=== PATIENT | male | born 1980 | race Caucasian/White ===

== ENCOUNTER 2019-02-15 10:26 | Emergency (ER) | payer BC, OTHER ==
[2019-02-15] MEDS ORDERED: Ondansetron PF 4 MG/2 ML Vial ONE ×2 (10:49→11:04)
[2019-02-15 11:22] LABS: Band 28 % (5-11); Hemoglobin 15.4 g/dL (14.0-18.0); Lymphocytes 5 % (21-51); MDiff Complete? YES; Mean Corpuscular HGB CONC 34.3 g/dL (32.0-36.0); Mean Corpuscular Hemoglobin 28.9 pg (27.0-31.0); Mean Corpuscular Volume 84.4 fL (78.0-98.0); Mean Platelet Volume 8.3 fL (7.4-10.4); Monocytes 7 % (0-10); Neutrophil 57 % (42-75); Platelet Count 246 thou/uL (130-400); Platelet Morphology Comment Appears Adequate; RBC Distribution Width 11.8 % (11.5-14.5); Reactive Lymphocytes 2 % (0-10); Red Blood Cell (RBC) Count 5.31 mill/uL (4.70-6.10)
--- NOTE | 2019-02-15 11:26 | CT ---
CT abdomen and pelvis noncontrast HISTORY: Flank pain. FINDINGS: Each renal collecting system, ureter, and urinary bladder are decompressed without stone ap parent. Lack of contrast limits evaluation for other abnormalities. Mild degenerative changes lumbar spine. S cattered diverticula of the colon, particularly on the left, where no inflammation is apparent. Circumferential wall thickening and subtle stranding in the fat adjacent to the right side of the tra nsverse colon, the right colon, and the distal ileum. No free air or free fluid. Scattered reactive appearing lymph nodes throughout the mesentery, more on the right than the left. IMPRESSION: No CT evidence of urinary tract obstruction or calcification. Long segment colitis on the right, also involving the terminal ileum. Clinical correlation regarding cause of long segment colitis is required. Consider infectious versus inflammatory bowel disease versus ischemia.
[2019-02-15 11:32] LABS: ALT (SGPT) 27 U/L (8-55); AST (SGOT) 19 U/L (5-34); Albumin 4.7 g/dL (3.5-5.0); Alkaline Phosphatase 70 U/L (40-150); Anion Gap 19 mmol/L (10-20); BUN (Urea Nitrogen) 11 mg/dL (8.9-20.6); Bilirubin, Total 1.1 mg/dL (0.2-1.2); Calc. Creatinine Clearance 0 mL/min (70-130); Calcium 9.9 mg/dL (7.8-10.44); Carbon Dioxide 21 mmol/L (22-29); Chloride 98 mmol/L (98-107); Estimated GFR-MDRD 83; Globulin 3.2 g/dL (2.4-3.5); Glucose 106 mg/dL (70-105); Potassium 3.6 mmol/L (3.5-5.1); Protein, Total 7.9 g/dL (6.0-8.3); Sodium 134 mmol/L (136-145)
[2019-02-15] MEDS ORDERED: metroNIDAZOLE 500 MG/100 ML BAG ONE (11:36)
[2019-02-15] MEDS ORDERED: Ciprofloxacin Lactate/D5W 400 mg/200 ml Premix ONE (11:36)
[2019-02-15] MEDS ORDERED: Morphine 4 MG/ML VIAL ONE (11:45)
[2019-02-15 11:54] LABS: Lipase Less than 4 U/L (8-78)
[2019-02-15 14:02] LABS: Bilirubin Small (Negative); Blood, Urine Negative (Negative); Clarity Clear (Clear); Glucose, Urine (Dipstick) Negative (Negative); Leukocyte Negative (Negative); Nitrite Negative (Negative); Protein, Urine (Dipstick) 30 mg/dL (Neg-Trace); Urobilinogen 0.2 mg/dL (0.2-1.0)
[2019-02-15 14:08] LABS: Hyaline Casts/LPF 0-3 HYALINE CAST LPF (0-3 Hyaline); RBC/HPF 0-3 HPF (0-3); Squamous Epithelial 0-3 HPF (0-3); WBC/HPF 0-3 HPF (0-3)
== END 2019-02-15 13:56 | disposition home or self-care (01) ==
LOC: SCSER 10:26
DX: K52.9 Noninfective gastroenteritis and colitis, unspecified (principal); E78.5 Hyperlipidemia, unspecified; I10 Essential (primary) hypertension; Z79.899 Other long term (current) drug therapy
CPT/HCPCS: 36415; 74176; 80053; 81003; 81015; 83605; 83690; 85025; 87045; 87046; 87449; 87899; 94760; 96361; 96365; 96367; 96375; J0744; J2270; J2405

== ENCOUNTER 2024-09-30 13:03 | Outpatient (CLI) | payer BC | END 2024-09-30 13:04 | disposition home or self-care (01) | LOC: BICMRI 13:03 | PROVIDERS: ATTEND Orthopaedic Surgery | DX: M23.91 Unspecified internal derangement of right knee (principal); S83.203A Other tear of unspecified meniscus, current injury, right knee, initial encounter ==

== ENCOUNTER 2024-10-19 10:00 | Outpatient (CLI) | payer BC ==
[2024-10-19 09:17] LABS: #Basophils 0.04 10x3/uL (0.0-0.2); %Basophils 0.6 % (0.0-1.0); %Eosinophils 2.2 % (0.0-10.0); %Monocytes 10.3 % (0.0-10.0); %Neutrophils 40.6 % (42.0-75.0); Hematocrit 45.4 % (42.0-52.0); Hemoglobin 15.5 g/dL (14.0-18.0); Mean Corpuscular HGB CONC 34.1 g/dL (32.0-36.0); Mean Corpuscular Hemoglobin 29.4 pg (27.0-31.0); Mean Corpuscular Volume 86.1 fL (78.0-98.0); Mean Platelet Volume 10.9 fL (7.4-10.4); Platelet Count 236 10x3/uL (130-400); RBC Distribution Width 12.2 % (11.5-14.5); Red Blood Cell (RBC) Count 5.27 mill/uL (4.70-6.10)
[2024-10-19 09:38] LABS: Anion Gap 10 mmol/L (10-20); BUN (Urea Nitrogen) 18 mg/dL (8.9-20.6); Calc. Creatinine Clearance 0 mL/min (70-130); Calcium 8.9 mg/dL (7.8-10.44); Carbon Dioxide 27 mmol/L (22-29); Chloride 106 mmol/L (98-107); Estimated GFR 106; Glucose 116 mg/dL (70-105); Potassium 4.3 mmol/L (3.5-5.1); Sodium 139 mmol/L (136-145)
== END 2024-10-19 12:00 | disposition home or self-care (01) ==
LOC: LABBT 10:00
PROVIDERS: ATTEND Orthopaedic Surgery
DX: Z01.812 Encounter for preprocedural laboratory examination (principal); M23.91 Unspecified internal derangement of right knee
CPT/HCPCS: 80048; 85025

== ENCOUNTER 2024-10-21 06:04 | Day surgery (SDC) | payer BC ==
[2024-10-19 08:59] VITALS: BMI 30.5
[2024-10-21] MEDS ORDERED: Lidocaine 2% PF 5 ML VIAL ONE (06:50)
[2024-10-21] MEDS ORDERED: PROPOFOL 20 ML ONE ×3 (06:50→08:17)
[2024-10-21] MEDS ORDERED: Bupivacaine PF 0.5% 30 ML VIAL ONE (06:50)
[2024-10-21] MEDS ORDERED: fentaNYL 50 mcg/mL 1 mL Vial ONE ×3 (06:52→10:07)
[2024-10-21] MEDS ORDERED: CEFAZOLIN 2 GM VIAL ONE (07:12)
[2024-10-21] MEDS ORDERED: Bupivacaine HCl 0.5%/Epinephrine 1:200,000/PF 30 ml Vial ONE (07:17)
[2024-10-21] MEDS ORDERED: Lidocaine 1% PF 5 ML VIAL ONE (07:37)
[2024-10-21] MEDS ORDERED: Ondansetron PF 4 MG/2 ML Vial ONE (08:14)
[2024-10-21] MEDS ORDERED: fentaNYL PF 100 MCG/2 ML SYRINGE ONE ×2 (08:44→09:11)
== END 2024-10-21 11:20 | disposition home or self-care (01) ==
LOC: SDC 06:04
PROVIDERS: ATTEND Orthopaedic Surgery
PROC: 0SBC4ZZ Excision of Right Knee Joint, Percutaneous Endoscopic Approach (ICD-10-PCS; principal; 2024-10-21)
DX: S83.241A Other tear of medial meniscus, current injury, right knee, initial encounter (principal); M23.91 Unspecified internal derangement of right knee; Z90.49 Acquired absence of other specified parts of digestive tract; X58.XXXA Exposure to other specified factors, initial encounter; F17.200 Nicotine dependence, unspecified, uncomplicated
CPT/HCPCS: J0665; J2405; J2704; J3010